=== PATIENT | male | born 1980 | race Caucasian/White ===

== ENCOUNTER 2017-12-05 18:52 | Emergency (ER) | payer OTHER ==
[~2017-12-05] VITALS: Ht 185.4 cm; Wt 94.3 kg
[2017-12-05 18:54] VITALS: BP 152/87
[2017-12-05] MEDS ORDERED: HYDROcodone/APAP 5/325 TABLET ONE ×2 (20:09)
[2017-12-05] MEDS ORDERED: HYDROcodone/APAP 5/325 TABLET PO ONE (20:30)
== END 2017-12-05 20:20 | disposition home or self-care (01) ==
LOC: ED 19:00
DX: G89.11 Acute pain due to trauma (principal); M70.21 Olecranon bursitis, right elbow; M25.521 Pain in right elbow; X58.XXXA Exposure to other specified factors, initial encounter; Y93.89 Activity, other specified; Y92.89 Other specified places as the place of occurrence of the external cause; Y99.9 Unspecified external cause status
CPT/HCPCS: 99284